=== PATIENT | female | born 1960 | race Caucasian/White ===

== ENCOUNTER → 2018-07-11 | Outpatient (CLI) | payer OTHER ==
[~2018-07-11] MED LIST: ACET-3017 PO; ASPI81TA94 PO; CALC-547 PO; FERR325T24 PO; IBU800 PO; IBUP-1671 PO; LEVO150T72 PO; LOR5/325 PO; MULT-1335 PO; OMEG500C7 PO; TAMO20TA19 PO
--- NOTE | 2018-07-12 08:18 | RADIOLOGY IMAGING REPORT ---
FACILITY: [facility] PATIENT NAME: LENKA PATEL : [id number] MR: [id number] V: [id number] EXAM DATE: [id number] ORDERING PHYSICIAN: FLACO GUILLEN TECHNOLOGIST: Nina Coats PROCEDURE:BILATERAL DIGITAL SCREENING MAMMOGRAM WITH CAD ASSISTED INTERPRETATION & 3D TOMOSYNTHESIS COMPARISON:Prior mammograms 07/07/17, 07/02/16, 07/01/15, 06/24/14, 06/22/13, 06/20/12. INDICATIONS:screening FINDINGS: Moderately heterogeneous fibroglandular tissue is seen throughout the breasts. The parenchymal pattern has remained stable allowing for difference in mammographic technique & patient positioning. There is no evidence of malignant appearing mass, malignant appearing calcifications or other secondary sign of malignancy in either breast. DIAGNOSTIC CATEGORY 1--NEGATIVE. RECOMMENDATIONS: ROUTINE MAMMOGRAM AND CLINICAL EVALUATION. IMPRESSION: BIRADS 1: Negative. No significant abnormality is seen. Dictated by: Mayra Null M.D. on 07/11/2018 at 16:16 Transcribed by: CHRISTIAN on 07/12/2018 at 7:52 Approved by: Mayra Null M.D. on 07/12/2018 at 8:17 [facility]
== END ==
LOC: MAMO 00:10
PROVIDERS: ATTEND Nurse Practitioner Family
DX: Z12.31 Encounter for screening mammogram for malignant neoplasm of breast (principal)
CPT/HCPCS: 77063; 77067

== ENCOUNTER 2019-02-11 16:18 | Emergency (ER) | payer OTHER ==
[2019-02-11 16:22] VITALS: BP 129/83
[2019-02-11] MEDS ORDERED: APAP/HYDROCODONE 325/5 TAB PO ONE (16:40)
[2019-02-11] MEDS ORDERED: IBUPROFEN 600 MG TAB PO ONE (16:40)
--- NOTE | 2019-02-11 16:48 | ER Report ---
History and Physical Time Seen By MD: 16:30 Hx. of Stated Complaint: fell off of [place] and felt left knee pop. pain radiates down left antunez. left foot numb HPI/ROS CHIEF COMPLAINT: Twisted knee HISTORY OF PRESENT ILLNESS: 58-year-old female was on her truck [place], parked at [employer], where she was squatting down about 2 hop off the tailgate, when her knee twisted, she felt a pop, it gave out, and she ended up falling onto the ground. Patient states she fell onto her buttock and rolled away without injuring arms, leg, hitting head, or other pain. She was able to get up with assistance and has been able to walk lightly on her toes of the left leg, but has not been able to bear full weight. She complains of pain throughout the knee that is extending down the leg. Pain is 7 out of 10. She iced it home for 2 hours before coming in. REVIEW OF SYSTEMS: Respiratory: No cough, no dyspnea. Cardiovascular: No chest pain, no palpitations. Gastrointestinal: No vomiting, no abdominal pain. Musculoskeletal: No back pain. Remainder of the 14 system rev: Yes Allergies: Coded Allergies: Oxycodone (Verified Adverse Reaction, Intermediate, NAUSEA/VOMITING, 04/10/09) Home Meds Reported Medications Ferrous Sulfate (IRON) 325 Mg Tablet, 325 MG PO QDAYA 11/07/13 Harriet-3 Fatty Acids (FISH OIL) 500 Mg Capsule, 500 MG PO QDAY, CAPSULE 11/07/13 Multivitamins W-Minerals (Multiple Vitamin) 1 Tab Tablet, 1 TAB PO QAM, 0 Refills 04/10/09 Calcium Carbonate/Vitamin D3 (Calcium + D 600 Mg Tablet) 1 Each Tablet, 1 EACH PO DAILY, 0 Refills 04/10/09 Levothyroxine Sodium (Levothyroxine Sodium) 150 Mcg Tablet, 150 MCG PO QAM, 0 Refills 04/10/09 Discontinued Reported Medications Ibuprofen (MOTRIN IB) 200 Mg Tablet, 4 TAB PO TID, #30 TAKE THREE TABLETS BY MOUTH EVERY SIX TO EIGHT HOURS 11/09/13 Acetaminophen With Codeine # 3 (TYLENOL WITH CODEINE #3 TABLET) 1 Each Tablet, 1 EACH PO Q4H PRN for PAIN, #15 11/09/13 Aspirin (ASPIRIN) 81 Mg Tab.chew, 81 MG PO QDAY, TAB.CHEW TAKE 1 TABLET BY MOUTH EVERY DAY 11/07/13 Ibuprofen (Motrin) 800 Mg Tab, 800 MG PO Q8H, 0 Refills TAKE WITH FOOD. START AFTER 5:00 PM TODAY. 04/11/09 Reviewed Nurses Notes: Yes Constitutional Vital Sign - Last 24 Hours 02/11/19 16:22 Temp 98.6 Pulse 70 Resp 20 B/P (MAP) 129/83 Pulse Ox 91 O2 Delivery Room Air Physical Exam General Appearance: The patient is alert, has no immediate need for airway protection and no current signs of toxicity. Eyes: Pupils equal and round no injection. Respiratory: Chest is non tender, lungs are clear to auscultation. Cardiac: regular rate and rhythm Musculoskeletal: Extremities have full range of motion and are nontender with exception of left lower extremity. Patient has no patella step-off or tenderness. She has no gross deformity. She has 2+ distal pulses. She has light touch symptoms sensation intact distally. She has normal capillary refill distally. She has negative L achman's, negative anterior drawer, however one half centimeter of laxity on posterior drawer. She has tenderness at the LCL. She resists Rudy's testing. She has no other pain, step-off, tenderness. Skin: No rashes or lesions. DIFFERENTIAL DIAGNOSIS: After history and physical exam differential diagnosis was considered for knee fracture, knee dislocation, patella or quadriceps tendon rupture, ligament disruption, or other complication of fall and injury. Medical Decision Making ED Course/Re-evaluation ED Course 58 f presents with findings c/w probable lcl sprain and poss partial pcl tear. Xray shows lateral small avulsion likely assoc with lcl. Will place knee immobilizer and dc with SRP's. Decision to Disposition Date: February 11, 2019 Decision to Disposition Time: 17:05 Depart Departure Latest Vital Signs Vital Signs Date Time Temp Pulse Resp B/P (MAP) Pulse Ox O2 Delivery O2 Flow Rate FiO2 02/11/19 16:22 98.6 70 20 129/83 91 Room Air Impression: Primary Impression: Knee LCL sprain Additional Impression: Left knee sprain Condition: Improved Disposition: HOME OR SELF-CARE Referrals: PAM GUAN MD (PCP) 1 Week New Scripts Hydrocodone Bit/Acetaminophen (HYDROCODON-ACETAMINOPHEN 5-325) 1 Each Tablet 1 EACH PO Q4-6H, #15 TAB Prov: HUGH WATT MD 02/11/19 Patient Instructions: Knee Sprain (ED) Additional Instructions: we discussed, you have a knee sprain. This means you have pulled or torn ligaments in your knee. From your exam it appears your ACL is intact, but you appear to have torn your LCL (lateral collateral ligament), with a very small avulsion of bone along with it, and you may have a partial tear of your PCL (posterior collateral ligament). I recommend the knee immobilizer and crutches until you follow up with your primary doctor in 5-7 days for repeat exam and determination of need for further imaging. Most likely, these injuries will heal on their own with time, but it will take days until you can gingerly walk, weeks until you are comfortably walking, and 2-3 months until you are able to build up full strength again. You may ice frequently, take ibuprofen 600mg every 8 hours as needed, and norco if needed for uncontrolled pain or pain at night. Please return for any concerns. Problem Qualifiers Primary Impression: Knee LCL sprain Encounter type: initial encounter Laterality: left Qualified Codes: S83.422A - Sprain of lateral collateral ligament of left knee, initial encounter Additional Impression: Left knee sprain Encounter type: initial encounter Involved ligament of knee: lateral collateral ligament Qualified Codes: S83.422A - Sprain of lateral collateral ligament of left knee, initial encounter HUGH WATT MD February 11, 2019 16:48
[2019-02-11] MEDS ORDERED: LOR5/325 PO (17:08)
[2019-02-11] MEDS ORDERED: ACET/HYDROC 5/325MG TH ER ONLY 2 TAB/BOTTLE PO ONE (17:10)
--- NOTE | 2019-02-11 17:13 | RADIOLOGY IMAGING REPORT ---
FACILITY: [facility] [place] PATIENT NAME: Sonia William : 1960 MR: [id number] V: [id number] EXAM DATE: ORDERING PHYSICIAN: HUGH WATT TECHNOLOGIST: Location: [facility] [place] Patient: Sonia William : 1960 Visit/Account:[id number] Date of Sevice: 02/11/2019 KNEE 4 VIEW LEFT HISTORY: fell off tailgait, twisting knee, felt pop Twisted knee. Lumbar spine. AP oblique lateral and patellar sunrise views of the knees. FINDINGS: No acute fracture. The distal femur and proximal tibia/fibula are well-maintained. Patella is normal. No patellar tilt or translation. No joint effusion. Soft tissues unremarkable. IMPRESSION: 1. Negative left knee for acute bony pathology. Report Dictated By: Abdelrahman Oscar MD at 02/11/2019 5:03 PM Report E-Signed By: Abdelrahman Oscar MD at 02/11/2019 5:08 PM WSN:[id number]
== END 2019-02-11 17:25 | disposition home or self-care (01) ==
LOC: ER 16:23
DX: S83.422A Sprain of lateral collateral ligament of left knee, initial encounter (principal)
CPT/HCPCS: 73564; 99283; L1830

== ENCOUNTER → 2019-03-05 | Outpatient (CLI) | payer OTHER ==
--- NOTE | 2019-03-05 16:03 | EKG ---
[place] [facility] [place]IENT NAME: LENKA PATEL : [id number] MR: [id number] V: [id number] EXAM DATE: ORDERING PHYSICIAN: FLACO GUILLEN TECHNOLOGIST: ALEKSANDER Test Reason : PREOP-KNEE Blood Pressure : / mmHG Vent. Rate : 059 BPM Atrial Rate : 059 BPM P-R Int : 154 ms QRS Dur : 074 ms QT Int : 416 ms P-R-T Axes : 049 031 -28 degrees QTc Int : 411 ms Sinus bradycardia Nonspecific T wave abnormality Abnormal ECG No previous ECGs available Confirmed by DIAMOND BUCIO ([id number] on 03/05/2019 4:26:55 PM Referred By: MINDY Confirmed By:DIAMOND BUCIO
== END ==
LOC: RESP 15:34
PROVIDERS: ATTEND Nurse Practitioner Family
DX: Z01.810 Encounter for preprocedural cardiovascular examination (principal); R94.31 Abnormal electrocardiogram [ECG] [EKG]
CPT/HCPCS: 93005